=== PATIENT | female | born 2000 | race Caucasian/White ===

== ENCOUNTER 2023-08-13 16:43 | Emergency (ER) | payer OTHER, SELFPAY ==
--- NOTE | ~2023-08-13 | US_ITS ---
EXAMINATION: US pelvic complete w TV DATE: 08/13/2023 21:14 INDICATION: Right lower quadrant pain TECHNIQUE: Multiple transabdominal and endovaginal sonographic images of the pelvis were obtained. COMPARISON: None. FINDINGS: The uterus measures 7.7 x 3.7 cm. The endometrial complex measures 9 mm. The right ovary is not visualized however no right adnexal abnormality is seen. The left ovary measures 2.1 x 2.1 x 2 c m. There is normal vascular flow in the left ovary. There is no free fluid in the pelvis. IMPRESSION: 1. No sonographic correlate for the patient's symptoms. Reviewed, dictated and finalized at location [facility].
--- NOTE | ~2023-08-13 | CT_ITS ---
EXAMINATION: CT abdomen pelvis w con INDICATION: Right lower quadrant pain TECHNIQUE: Computed tomographic images of the abdomen and pelvis were obtained after the administrati on of 100 cc of Omnipaque 350 intravenous contrast. The dose-length product (DLP) was 591.46 mGy-cm. Automated exposure control and iterative reconstruction technique were employed. COMPARISON: None available FINDINGS: Minimal dependent atelectasis is present in the lung bases. The heart size is normal. Cysts of liver measure up to 3 mm in the left hepatic lobe. The spleen, pancreas, gallbladder, and adrenal glands are normal. The kidneys are unremarkable. No pathologically enlarged abdominal or pelvic lymp h nodes are identified. No free intraperitoneal gas or evidence of bowel obstruction. The appendix is normal. There is a corpus luteum of the right ovary. There is a small amount of mildly hyperattenuat ing fluid in the right adnexa and pelvis. 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 IMPRESSION: 1. Small amount of mildly hyperattenuating fluid in the right adnexa and pelvis. Given the negative p regnancy test, findings likely represent ruptured ovarian cyst. If the patient remains clinically sta ble, consider short-term follow-up ultrasound. Reviewed, dictated and finalized at location [facility]. IMPRESSION: 1. Small amount of mildly hyperattenuating fluid in the right adnexa and pelvis . Given the negative test, findings likely represent ruptured ovarian cyst. If the patient remains clinically stable, consider short-term follow-up ultrasound.
[2023-08-13 16:45] VITALS: BP 141/80; PULSE 79; RESP 16; TEMP 36.4; O2SAT 100
[2023-08-13 18:32] LABS: Basophils Absolute Auto 0.1 K/mm3 (0.0-0.1); Basophils Percent Auto 0.7 % (0.2-1.2); Eosinophils Absolute Auto 0.2 K/mm3 (0-0.3); Eosinophils Percent Auto 1.7 % (0-4.4); Hematocrit 40.1 % (37.0-47.0); Hemoglobin 12.2 g/dL (12.0-15.0); Immature Granulocyte Absolute 0.03 K/mm3 (0.00-0.031); Immature Granulocyte Percent A 0.3 % (0-0.5); Lymphocytes Absolute Auto 2.78 K/mm3 (0.9-3.2); Mean Corpuscular HGB Conc 30.4 g/dl (32-36); Mean Corpuscular Hemoglobin 25.1 pg (26-34); Mean Corpuscular Volume 82.5 fl (80-100); Mean Platelet Volume 11.4 fl (7.4-10.4); Monocytes Percent Auto 10.1 % (2.6-8.5); Neutrophils Absolute Auto 5.9 K/mm3 (1.3-6.7); Neutrophils Percent Auto 59.2 % (45.5-73.1); Platelet Count Result 279 k/mm3 (150-375); Red Blood Count 4.86 M/mm3 (4.2-5.4); Red Cell Distribution Width 15.6 % (11.5-14.5); White Blood Count 9.9 K/mm3 (4.5-10.0)
[2023-08-13 18:43] LABS: Alanine Aminotransferase 17 U/L (6-35); Albumin Level 4.8 g/dL (3.5-5.1); Alkaline Phosphatase 92 U/L (38-126); Anion Gap 10 mmol/L (8-16); Aspartate Amino Transferase 30 U/L (14-36); Bilirubin,Total 0.5 mg/dL (0.2-1.3); Blood Urea Nitrogen 10 mg/dL (7-17); Calcium 9.9 mg/dL (8.4-10.2); Carbon Dioxide 24 mmol/L (22-30); Chloride 105 mmol/L (98-107); Estimated CRCL calculation 134 ml/min; Estimated Glomerular Filt Rate > 60; Glucose 86 mg/dL (65-110); Lipase 152 U/L (23-300); Potassium 3.7 mmol/L (3.4-5.0); Sodium 139 mmol/L (137-145)
[2023-08-13 19:24] LABS: Bacteria Urine None Seen /hpf; Non Pathogenic Casts 0-2; RBC Urine 0-2 /hpf (0-2); Squamous Epithelial Cell Urine None Seen /hpf (Few); WBC Urine 0-5 /hpf (0-3)
[2023-08-13 19:31] LABS: Color Urine Light Yellow (Yellow)
[2023-08-13 19:32] LABS: Appearance Urine Clear (Clear); pH Urine 6.5 (5.0-9.0)
[2023-08-13 19:33] LABS: Glucose Urine UA Negative (Negative); Ketones Urine Negative (Negative); Protein Urine Negative (Negative)
[2023-08-13 19:34] LABS: Nitrate Urine Negative (Negative)
[2023-08-13 19:35] LABS: Blood Urine Negative (Negative); Urobilinogen Urine 0.2 mg/dL (<2.0)
[2023-08-13 19:36] VITALS: BP 130/80; PULSE 92; RESP 18; O2SAT 100
[2023-08-13 19:36] LABS: Add Urine Microscopic? YES; Bilirubin Urine Negative (Negative); Leukocyte Esterase Ur Negative LEU/UL (Negative)
[2023-08-13 19:58] LABS: Pregnancy On Board Control Positive; Urine Pregnancy Test Negative
--- NOTE | 2023-08-13 20:13 | ED.ABDPAIN ---
HPI - Abdominal Pain General Chief Complaint: Abdominal Pain Stated Complaint: abd pain Time Seen by Provider: 08/13/23 19:28 Source: patient Mode of arrival: ambulatory Limitations: no limitations History of Present Illness HPI narrative: patient is 22-year-old female who presents the ED with report of right lower quadrant abdominal pain. patient reports having intermittent pain over the last 9 days. States pain has been intermittent but worsening. Has tried Tylenol and ibuprofen without much improvement. Pain became much worse today and was associated with nausea, which prompted her presentation. She states she has a history of UTI and states this pain feels somewhat similar. She was previously seen at an Urgent Care within the last 1 week and had a negative urinalysis. She denies dysuria, frequency, urgency, hematuria. Denies vomiting, fevers, diarrhea, constipation. She does have history of ovarian cyst. Denies vaginal bleeding or discharge. Related Data Allergies Allergy/AdvReac Type Severity Reaction Status Date / Time latex Allergy Itching Verified 08/13/23 19:42 Review of Systems Review of Systems: CONSTITUTIONAL: Denies fever, chills, or sweats. CARDIOVASCULAR: Denies chest pain. RESPIRATORY: Denies dyspnea. GASTROINTESTINAL: See HPI. GENITOURINARY: Denies vaginal bleeding, vaginal discharge, dysuria or hematuria. MUSCULOSKELETAL: Denies back pain, extremity pain, myalgia. All systems reviewed & are unremarkable except as noted in HPI and below Exam Narrative: GENERAL: Well appearing, obese with BMI of 32.2, non-toxic, in no acute distress. HEAD: Normocephalic, atraumatic. RESPIRATORY: Airway patent, respirations nonlabored. Clear to auscultation bilaterally, no rales, rhonchi, wheezing. CARDIOVASCULAR: Regular rate and rhythm ABDOMINAL: Soft, mild tenderness to palpation in right lower abdomen/suprapubic region, no rebound, nondistended. Normoactive BS. MUSCULOSKELETAL: Moves all extremities. No gross deformities. SKIN: Warm, dry, normal color. Chronic scarring to bilateral forearms. NEURO: A&O X3. Speech clear. PSYCHIATRIC: Appropriate mood and affect. Normal interaction. Course Vital Signs Vital signs: Vital Signs Temperature 97.6 F 08/13/23 16:45 Pulse Rate 79 08/13/23 16:45 Respiratory Rate 16 08/13/23 16:45 Blood Pressure 141/80 H 08/13/23 16:45 Pulse Oximetry 100 08/13/23 16:45 Oxygen Delivery Room Air 08/13/23 16:45 Temperature 97.6 F 08/13/23 16:45 Pulse Rate 72 08/13/23 22:23 Respiratory Rate 17 08/13/23 22:23 Blood Pressure 116/62 08/13/23 22:23 Pulse Oximetry 100 08/13/23 22:23 Oxygen Delivery Room Air 08/13/23 16:45 MDM - Abdominal Pain MDM Narrative Medical decision making narrative: Patient presented to ED with 9 day history of right lower quadrant abdominal pain. Vital signs are stable upon arrival. Patient in no acute distress. Laboratory studies are fairly unremarkable. White blood cell count 9.9. Stable electrolytes and kidney function. Normal LFTs and lipase. Urinalysis without evidence for infection or blood. Pelvic ultrasound obtained and unremarkable, did not obtain good view of right ovary, but no abnormality noted in right adnexal region. CT scan of abdomen pelvis was obtained, showing normal appendix, does show evidence of small amount of fluid to right adnexal region, possibly ruptured ovarian cyst. I do feel like this fits with patient clinical picture. She has had history of previous cysts in the past. Discussed lab and imaging findings with patient. She is feeling better with supportive therapy. States she is ready to go home. Offered further pain medicine, further workup and patient declined, again states she is ready to go home. Patient is in no acute distress. Low suspicion for torsion at this time. Advised patient have close follow-up with OBGYN for further evaluation and serial imaging. Offered to provide
[2023-08-13] MEDS: ONDANSETRON INJ 4 MG/2 ML VIAL IV PUSH (21:42)
[2023-08-13] MEDS: ACETAMINOPHEN 500 MG TABLET 1000 MG PO (21:42)
[2023-08-13 22:23] VITALS: BP 116/62; PULSE 72; RESP 17; O2SAT 100
== END 2023-08-13 23:03 | disposition home or self-care (01) ==
PROVIDERS: Emergency Medicine; Emergency Provider Physician Assistant
DX: N83.201 Unspecified ovarian cyst, right side (principal)
CPT/HCPCS: 36415; 74177; 76830; 76856; 80053; 81001; 81025; 83690; 85025; 96374; 99284; A9270; J2405; Q9967

== ENCOUNTER 2023-09-03 06:41 | Emergency (ER) | payer OTHER, SELFPAY ==
--- NOTE | ~2023-09-03 | XR_ITS ---
Right Shoulder Technique: AP and scapular Y views were obtained. Clinical History: Pain Findings: No fracture or dislocation is seen. Osseous alignment is anatomic. The glenohumeral and acr omioclavicular joint spaces are preserved. Soft tissues are unremarkable. Impression: Unremarkable right shoulder radiographs. Reviewed, dictated and finalized at [facility]. Impression: Unremarkable right shoulder radiographs.
[2023-09-03 06:45] VITALS: BP 132/62; PULSE 81; RESP 17; TEMP 36.6; O2SAT 100
--- NOTE | 2023-09-03 07:39 | ED.UPPEXIN ---
HPI - Extremity Injury (Upper) General Chief Complaint: Extremity Injury, Upper Stated Complaint: Right shoulder pain Time Seen by Provider: 09/03/23 07:08 History of Present Illness HPI narrative: Patient is a 22-year-old female with history of asthma, right-hand dominant here today with right shoulder pain. She states over the last couple of weeks she has been having increasingly worsening right shoulder pain. She notes that the night preceding the beginning of her pain she did roll over and felt like she rolled on her shoulder wrong and since that time has been having some pain. She notes she has had some decreased use of the shoulder due to pain. She has tried doses of naproxen, Tylenol, ibuprofen with minimal help her symptoms. She notes some increasing difficulty moving that shoulder due to pain and stiffness. She notes that the pain is located in her posterior right shoulder and radiates down to her mid humerus. Denies any additional trauma. No fever or chills. 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 No additional symptoms Including chest pain, shortness of breath, abdominal pain, nausea, vomiting. No prior orthopedic surgeries. Related Data Allergies Allergy/AdvReac Type Severity Reaction Status Date / Time latex Allergy Itching Verified 09/03/23 06:49 Review of Systems Review of Systems: All systems reviewed & are unremarkable except as noted in HPI and below Exam Narrative: GENERAL: Well-appearing, well-nourished, and in no acute distress. HEAD: Normocephalic, atraumatic. EYES: PERRLA and EOMI. ENT: Nares clear. Mucous membranes moist. NECK: Supple. CHEST: Clear to auscultation. No respiratory distress. HEART: Regular rate and rhythm. Normal peripheral pulses. ABDOMEN: Soft, nontender, nondistended. EXTREMITIES: Mild decreased range of motion of the right shoulder due to pain, pain worsens with abduction beyond 45?. No obvious deformity. She has some posterior shoulder tenderness as well as some mild tenderness throughout the anterior lateral aspect of shoulder and down through her proximal humerus. Nontender elbow, nontender wrist with strong radial pulse, normal sensation throughout the arm. SKIN: Warm, dry, no rash. NEURO: No focal deficits. Alert and oriented x3. PSYCH: Normal mood and affect. Course Course Emergency Course: Chart review performed. Patient here with right shoulder pain, increased activity over last few weeks, unable to move it. Triage vitals normal. Patient seen evaluated, nontoxic appearing. X-ray is negative. Discussed negative x-ray and risk of a adhesive capsulitis given her decrease shoulder use over the last 2 weeks with her pain. Suspect she likely has a soft tissue injury to this shoulder including a muscle strain or rotator cuff injury. I advised her of how early range of motion activities with the shoulder, rest, ice. Additionally advised scheduled ibuprofen and Tylenol with breakthrough pain coverage with [place]. Will refer to Orthopedic surgery. The results of pertinent diagnostic studies and exam findings were discussed. The patient?s provisional diagnosis and plan of care were discussed with the patient and present family. The patient and/or present family expressed understanding of the diagnosis and plan. The nurse was instructed to provide written instructions and appropriate follow-up information. The patient understands their need and responsibility to obtain additional follow-up as instructed. The risks of medications administered and prescribed were discussed with the patient and family present. Vital Signs Vital signs: Vital Signs Temperature 97.9 F 09/03/23 06:45 Pulse Rate 81 09/03/23 06:45 Respiratory Rate 17 09/03/23 06:45 Blood Pressure 132/62 09/03/23 06:45 Pulse Oximetry 100 09/03/23 06:45 Oxygen Delivery Room Air 09/03/23 0
[2023-09-03 09:02] VITALS: BP 127/85; PULSE 74; RESP 15; O2SAT 100
== END 2023-09-03 09:03 | disposition home or self-care (01) ==
PROVIDERS: Emergency Provider Student in an Organized Health Care Education/Training Program
DX: M25.511 Pain in right shoulder (principal)
CPT/HCPCS: 73030; 81025; 99283